=== PATIENT | female | born 1990 | race Caucasian/White ===

== ENCOUNTER → 2022-01-02 13:13 | Outpatient (BNVA) | payer MEDICAID, SELFPAY | PROVIDERS: Family Provider Internal Medicine; PCP Nurse Practitioner Family; Visit Provider Nurse Practitioner Family | DX: R06.09 Other forms of dyspnea (principal); U09.9 Post COVID-19 condition, unspecified; R06.02 Shortness of breath; R07.9 Chest pain, unspecified; R53.1 Weakness; R53.83 Other fatigue; K31.84 Gastroparesis; R42 Dizziness and giddiness; R41.3 Other amnesia; R41.840 Attention and concentration deficit; Z74.09 Other reduced mobility; R00.2 Palpitations; R29.90 Unspecified symptoms and signs involving the nervous system; F43.10 Post-traumatic stress disorder, unspecified; F90.9 Attention-deficit hyperactivity disorder, unspecified type; Z76.89 Persons encountering health services in other specified circumstances; G89.29 Other chronic pain | CPT/HCPCS: 84443; 85651; 86038; 86140; 86200; 86431; 86705; 86706; 86709; 86803; 87340 ==

== ENCOUNTER 2022-02-04 08:58 | Emergency (ER) | payer MEDICARE, MEDICAID, SELFPAY ==
[2022-02-04 09:28] LABS: Basophils # 0.1 10^3/uL (0.0-0.1); Basophils % 0.9 %; Eosinophils # 0.2 10^3/uL (0.0-0.8); Eosinophils % 3.2 %; Hematocrit 38.3 % (37.0-47.0); Hemoglobin 12.5 g/dL (11.5-15.3); Lymphocytes # 1.6 10^3/uL (0.8-4.8); Lymphocytes % 28.5 %; Mean Corpuscular HGB Conc 32.6 g/dL (30.0-36.0); Mean Corpuscular Hemoglobin 29.8 pg (28.0-34.0); Mean Corpuscular Volume 91.4 fl (81-99); Mean Platelet Volume 8.6 fL (7.4-10.4); Monocytes # 0.4 10^3/uL (0.2-0.9); Monocytes % 7.2 %; Neutrophils # 3.34 10^3/uL (1.8-7.7); Nucleated Red Blood Cells % 0 %; Platelet Count 369 10^3/cmm (130-400); Red Blood Count 4.19 10^6/uL (4.1-5.3); Red Cell Distribution Width 13.3 % (12.1-15.1); White Blood Count 5.6 10^3/uL (4.0-10.0)
[2022-02-04 09:32] VITALS: BP 122/68; PULSE 75; RESP 18; TEMP 36.7; O2SAT 98
--- NOTE | 2022-02-04 09:32 | ED_ITS ---
Documented by User: MARY Sandoval 02/05/22 06:04 HPI - Abdominal Pain General: Chief Complaint: Abdominal Pain Stated Complaint: Sent by Kristin Gregory, possible bowel obstructon Time Seen by Provider: 02/04/22 09:01 History of Present Illness: Patient is a 31-year-old female who comes to the ED with abdominal pain. Patient was sent here by the nurse practitioner Kristin Gregory at [facility] for further evaluation and possible bowel obstruction. She has history of constipation. She currently sees pain management and has been on hydrocodone for over a year. Her worsening abdominal pain and constipation started approximately 2 weeks ago. Her 2 kids had pinworms and they treated the kids and she also took oral medication for pinwor ms and since then she has had worsening constipation and abdominal pain. Her last bowel movement was 5 days ago and she described the stool as hard and golf ball sized. She has tried enemas and other mizp-gyb-ugrbvog medications including MiraLAX within the last 24 hours and has not been able to have a bowel movement. Her pain is described as a sharp pain and its in her lower abdomen bilaterally. Pain comes and goes in waves. She endorses having some nausea and vomiting as well within the last 24 hours. Denies any fevers Associated Symptoms: Reports constipation, nausea and vomiting; Denies chills, diarrhea, dysuria, fever(s), hematochezia and hematuria Review of Systems Const: Denies: fever(s), chills or fatigue Eyes: Denies: change in vision or eye discomfort ENMT: Denies: throat pain, odynophagia, nasal discharge or nasal congestion Card: Denies: chest pain, palpitations, edema, swelling of feet/ankles, dyspnea on exertion or orthopnea Resp: Denies: dyspnea, productive cough or non-productive cough GI: Reports: abdominal pain, nausea, vomiting and constipation; Denies: diarrhea or hematochezia : Denies: flank pain, dysuria or hematuria Musc: Denies: neck pain, back pain or extremity swelling Skin/Breast: Denies: rash or new lesions Neuro: Denies: headache(s), numbness in extremities or weakness in extremities [facility] ED PFSH: Medical History ADHD PTSD (post-traumatic stress disorder) Social History Smoking and tobacco status: former smoker Physical Exam Const: COMMON NORMALS: patient oriented x3 and alert GENERAL APPEARANCE: cooperative HENMT: COMMON NORMALS: normocephalic HEAD & SCALP: normocephalic MOUTH: Normal oral and palatal mucosa present THROAT: posterior oropharynx normal and uvula midline Neck/C-Spine: COMMON NORMALS: supple GENERAL: Yes normal visual inspection Resp: COMMON NORMALS: normal respiratory effort, No retractions, No use of accessory muscles and clear to auscultation bilaterally AUSCULTATION: clear to auscultation bilaterally Cardio: COMMON NORMALS: regular rate, regular rhythm, S1 normal heart sound present, S2 normal heart sound present, No gallops present (Cardio), No clicks present (Cardio), No murmurs present (Cardio) and Peripheral pulses 2+ throughout RATE: regular rate RHYTHM: regular rhythm HEART SOUNDS: S1 normal heart sound present and S2 normal heart sound present PERIPHERAL PULSES: Peripheral pulses 2+ throughout GI: COMMON NORMALS: Normal to inspection, nondistended, normoactive bowel sounds present, Soft to palpation and no masses PALPATION: Yes Soft to palpation and Yes Tenderness to palpation present (GI) Details: LLQ and RLQ : COMMON NORMALS: Yes no CVA tenderness BLADDER/KIDNEY EXAM: Yes no CVA tenderness Back/Pelvis: COMMON NORMALS: no CVA tenderness Extremity: COMMON NORMALS: normal to inspection Neuro: COMMON NORMALS: patient oriented x3 SENSORIUM/ORIENTATION: Yes alert GAIT: Yes Normal gait present Skin: GENERAL SKIN EXAM: dry skin Course Vital Signs: Vital signs: Vital Signs Temperature 98.1 F 02/04/22 09:32 Pulse Rate 92 02/04/22 12:00 Respiratory Rate 18 02/04/22 09:32 Blood Pressure 113/69 02/04/22 12:00 Pulse Oximetry 98 02/04/22 12:00 Oxygen Delivery Me thod 02/04/22 12:00 MDM - Abdominal Pain Medical Decision Making Patient is a 31-year-old female comes to the ED with abdominal pain and constipation. Vitals are stable. Patient appears nontoxic in no acute distress. She has some mild generalized tenderness in the right and left lower quadrant of the abdomen. CBC, CMP and UA were unremarkable. KUB showed large amount of fecal material in the colon. CT of abdomen pelvis showed no acute findings. Patient was diagnosed with constipation and abdominal pain. She was sent home with a prescription for GaviLyte and told to follow-up with PCP within the next 3 to 5 days for reevaluation. Return to ED precautions given. Patient understood and agreed with plan. Lab Data I reviewed the patient's lab results. : 02/04/22 09:19 02/04/22 09:19 Labs/Radiology: Radiology Impressions KUB X-Ray 02/04/22 09:35 Impression: Large amount of fecal material in the colon. Abdomen/Pelvis CT 02/04/22 10:26 IMPRESSION: 1. Mild bilateral striated nephrograms. Correlate for pyelonephritis. 2. No renal obstruction. 3. The appendix is not identified. But there are no secondary findings of appendicitis. 4. Small RIGHT ovarian cyst. Laboratory Results WBC 5.6 10^3/uL (4.0-10.0) 02/04/22 09:19 RBC 4.19 10^6/uL (4.1-5.3) 02/04/22 09:19 Hgb 12.5 g/dL (11.5-15.3) 02/04/22 09:19 Hct 38.3 % (37.0-47.0) 02/04/22 09:19 MCV 91.4 fl (81-99) 02/04/22 09:19 MCH 29.8 pg (28.0-34.0) 02/04/22 09:19 MCHC 32.6 g/dL (30.0-36.0) 02/04/22 09:19 RDW 13.3 % (12.1-15.1) 02/04/22 09:19 Plt Count 369 10^3/cmm (130-400) 02/04/22 09:19 MPV 8.6 fL (7.4-10.4) 02/04/22 09:19 Neut % (Auto) 60.0 % 02/04/22 09:19 Lymph % (Auto) 28.5 % 02/04/22 09:19 [place] % (Auto) 7.2 % 02/04/22 09:19 Eos % (Auto) 3.2 % 02/04/22 09:19 Baso % (Auto) 0.9 % 02/04/22 09:19 Neut # (Auto) 3.34 10^3/uL (1.8-7.7) 02/04/22 09:19 Lymph # (Auto) 1.6 10^3/uL (0.8-4.8) 02/04/22 09:19 [place] # (Auto) 0.4 10^3/uL (0.2-0.9) 02/04/22 09:19 Eos # (Auto) 0.2 10^3/uL (0.0-0.8) 02/04/22 09:19 Baso # (Auto) 0.1 10^3/uL (0.0-0.1) 02/04/22 09:19 Nucleated RBC % (auto) 0 % 02/04/22 09:19 Nucleated RBCs # 0.0 /100WBC 02/04/22 09:19 Sodium 139 mmol/L (136-145) 02/04/22 09:19 Potassium 4.4 mmol/L (3.5-5.1) 02/04/22 09:19 Chloride 104 mmol/L (98-107) 02/04/22 09:19 Carbon Dioxide 24 mmol/L (22-29) 02/04/22 09:19 Anion Gap 15.4 (5-19) 02/04/22 09:19 BUN 8 mg/dL (6-20) 02/04/22 09:19 Creatinine 0.5 mg/dL (0.5-0.9) 02/04/22 09:19 GFR Calculation 142.1 mL/min (90-130) H 02/04/22 09:19 Glucose 94 mg/dL (65-115) 02/04/22 09:19 Calculated Osmolality 286 mOsm/kg (285-295) 02/04/22 09:19 Calcium 8.9 mg/dL (8.5-10.5) 02/04/22 09:19 Total Bilirubin 0.3 mg/dL (0.15-1.2) 02/04/22 09:19 AST 17 U/L (0-32) 02/04/22 09:19 ALT 13 U/L (0-33) 02/04/22 09:19 Alkaline Phosphatase 55 U/L (35-105) 02/04/22 09:19 Total Protein 7.1 g/dL (6.6-8.7) 02/04/22 09:19 Albumin 4.5 g/dL (3.5-5.2) 02/04/22 09:19 Globulin 2.6 g/dL (1.3-4.6) 02/04/22 09:19 Lipase 25 U/L (13-60) 02/04/22 09:19 HCG, Qual Negative (Negative) 02/04/22 09:19 Urine Color Yellow (Yellow) 02/04/22 09:30 Urine Appearance Clear (CLEAR) 02/04/22 09:30 Urine pH 6 (5-7) 02/04/22 09:30 Ur Specific [place] 1.015 (1.005-1.030) 02/04/22 09:30 Urine Protein Neg (Negative) 02/04/22 09:30 Urine Glucose (UA) Norm (Normal) 02/04/22 09:30 Urine Ketones Negative (Negative) 02/04/22 09:30 Urine Blood Neg (Negative) 02/04/22 09:30 Urine Nitrate Negative (Negative) 02/04/22 09:30 Urine Bilirubin Neg (Negative) 02/04/22 09:30 Urine Urobilinogen Norm mg/dL (Negative) 02/04/22 09:30 Ur Leukocyte Esterase Negative (Negative) 02/04/22 09:30 Discharge Plan Discharge Patient Disposition: Home Clinical Impression: Constipation Qualifiers: Constipation type: unspecified constipation type Qualified Code(s): K59.00 - Constipation, unspecified Condition: Stable Prescriptions: New GaviLyte-G 236-22.74-6.74 -5.86 gram recon soln 240 ml PO Q10M Qty: 4000 0RF Rx Instructions: until fecal effluent is clear No Action albuterol sulfate [ProAir HFA] 90 mcg/actuation HFA aerosol inhaler 2 puff inhalation 6XD PRN (Reason: shortness of breath or wheezing) Qty: 8.5 6RF budesonide-formoterol [Symbicort] 160-4.5 mcg/actuation HFA aerosol inhaler 2 puff inhalation Q12H Qty: 10.2 6RF scopolamine base 1 mg over 3 days patch 3 day 1 patch transdermal Q3D PRN (Reason: nausea and vomiting) Qty: 10 6RF methylphenidate HCl 10 mg tablet 10 mg PO TID@07,12,16 hydrocodone-acetaminophen 10-325 mg tablet 1 tab PO DAILY PRN (Reason: Pain) Rx Instructions: rx filled 01/14/22 30d/s eszopiclone 1 mg tablet 1 mg PO BEDTIME oxycodone 10 mg tablet 10 mg PO Q8H PRN (Reason: Pain) Rx Instructions: rx filled 01/14/22 30d/s iron 325 mg (65 mg iron) Tablet 325 mg PO DAILY vitamin B complex Tablet 1 tab PO DAILY [place] Orotate 5 mg PO BEDTIME Discharge Orders: Discharge ED (Routine); Ordered 02/04/22 Ordered By: Antonio Monroe Referrals: Ninoska Gregory, HOME STAGING SPECIALIST [Primary Care Provider] - Discharge Diet: Regular Discharge Activity: Increase activity as tolerated Patient Instructions: Constipation (DC) Activity Restrictions/Additional Instructions: Follow-up with medical provider as directed in the next 3 to 5 days for reevaluation. Take medication as prescribed to help with bowel movements. Make sure you are drinking plenty of fluids and staying hydrated. Return to the ER or your medical provider if condition worsens. Please read and understand discharge instructions. Thank you for choosing [facility] for your healthcare needs today. Please realize this is an emergency room and that we are providing you with a medical screening exam and this may not be complete and all inclusive of all the testing and or work up that you may need to determine your ailment or severity of your illness. It is very important that you follow up as instructed or that you return to the Emergency Department should you have concerns or if your co ndition changes or worsens in any way. Coding Level of Care Code ED Bacon Skinner for Chg Fwd Exam Comprehensive Documented by User: Dario Meyers DO 02/06/22 15:21 HPI - Abdominal Pain General: Chief Complaint: Abdominal Pain Stated Complaint: Sent by Kristin Gregory, possible bowel obstructon Time Seen by Provider: 02/04/22 09:01 [facility] ED PFS: Medical History ADHD PTSD (post-traumatic stress disorder) Social History Smoking and tobacco status: former smoker Course Vital Signs: Vital signs: Vital Signs Temperature 98.1 F 02/04/22 09:32 Pulse Rate 92 02/04/22 12:00 Respiratory Rate 18 02/04/22 09:32 Blood Pressure 113/69 02/04/22 12:00 Pulse Oximetry 98 02/04/22 12:00 Oxygen Delivery Me thod 02/04/22 12:00 MDM - Abdominal Pain Medical Decision Making Patient is a 31-year-old female comes to the ED with abdominal pain and constipation. Vitals are stable. Patient appears nontoxic in no acute distress. She has some mild generalized tenderness in the right and left lower quadrant of the abdomen. CBC, CMP and UA were unremarkable. KUB showed large amount of fecal material in the colon. CT of abdomen pelvis showed no acute findings. Patient was diagnosed with constipation and abdominal pain. She was sent home with a prescription for GaviLyte and told to follow-up with PCP within the next 3 to 5 days for reevaluation. Return to ED precautions given. Patient understood and agreed with plan. Chart reviewed and patient discussed with midlevel. Agree with assessment and plan. Lab Data : 02/04/22 09:19 02/04/22 09:19 Labs/Radiology: Radiology Impressions KUB X-Ray 02/04/22 09:35 Impression: Large amount of fecal material in the colon. Abdomen/Pelvis CT 02/04/22 10:26 IMPRESSION: 1. Mild bilateral striated nephrograms. Correlate for pyelonephritis. 2. No renal obstruction. 3. The appendix is not identified. But there are no secondary findings of appendicitis. 4. Small RIGHT ovarian cyst. Laboratory Results WBC 5.6 10^3/uL (4.0-10.0) 02/04/22 09:19 RBC 4.19 10^6/uL (4.1-5.3) 02/04/22 09:19 Hgb 12.5 g/dL (11.5-15.3) 02/04/22 09:19 Hct 38.3 % (37.0-47.0) 02/04/22 09:19 MCV 91.4 fl (81-99) 02/04/22 09:19 MCH 29.8 pg (28.0-34.0) 02/04/22 09:19 MCHC 32.6 g/dL (30.0-36.0) 02/04/22 09:19 RDW 13.3 % (12.1-15.1) 02/04/22 09:19 Plt Count 369 10^3/cmm (130-400) 02/04/22 09:19 MPV 8.6 fL (7.4-10.4) 02/04/22 09:19 Neut % (Auto) 60.0 % 02/04/22 09:19 Lymph % (Auto) 28.5 % 02/04/22 09:19 [place] % (Auto) 7.2 % 02/04/22 09:19 Eos % (Auto) 3.2 % 02/04/22 09:19 Baso % (Auto) 0.9 % 02/04/22 09:19 Neut # (Auto) 3.34 10^3/uL (1.8-7.7) 02/04/22 09:19 Lymph # (Auto) 1.6 10^3/uL (0.8-4.8) 02/04/22 09:19 [place] # (Auto) 0.4 10^3/uL (0.2-0.9) 02/04/22 09:19 Eos # (Auto) 0.2 10^3/uL (0.0-0.8) 02/04/22 09:19 Baso # (Auto) 0.1 10^3/uL (0.0-0.1) 02/04/22 09:19 Nucleated RBC % (auto) 0 % 02/04/22 09:19 Nucleated RBCs # 0.0 /100WBC 02/04/22 09:19 Sodium 139 mmol/L (136-145) 02/04/22 09:19 Potassium 4.4 mmol/L (3.5-5.1) 02/04/22 09:19 Chloride 104 mmol/L (98-107) 02/04/22 09:19 Carbon Dioxide 24 mmol/L (22-29) 02/04/22 09:19 Anion Gap 15.4 (5-19) 02/04/22 09:19 BUN 8 mg/dL (6-20) 02/04/22 09:19 Creatinine 0.5 mg/dL (0.5-0.9) 02/04/22 09:19 GFR Calculation 142.1 mL/min (90-130) H 02/04/22 09:19 Glucose 94 mg/dL (65-115) 02/04/22 09:19 Calculated Osmolality 286 mOsm/kg (285-295) 02/04/22:19 Calcium 8.9 mg/dL (8.5-10.5) 02/04/22 09:19 Total Bilirubin 0.3 mg/dL (0.15-1.2) 02/04/22: AST 17 U/L (0-32) 02/04/22: ALT 13 U/L (0-33) 02/04/22 09:19 Alkaline Phosphatase 55 U/L (35-105) 02/04/22 09:19 Total Protein 7.1 g/dL (6.6-8.7) 02/04/22 09:19 Albumin 4.5 g/dL (3.5-5.2) 02/04/22 09:19 Globulin 2.6 g/dL (1.3-4.6) 02/04/22: Lipase 25 U/L (13-60) 02/04/22 09: HCG, Qual Negative (Negative) 02/04/22 09:19 Urine Color Yellow (Yellow) 02/04/22 09:30 Urine Appearance Clear (CLEAR) 02/04/22: Urine pH 6 (5-7) 02/04/22 09:30 Ur Specific [place] 1.015 (1.005-1.030) 02/04/22 09:30 Urine Protein Neg (Negative) 02/04/22 09:30 Urine Glucose (UA) Norm (Normal) 02/04/22: Urine Ketones Negative (Negative) 02/04/22 09:30 Urine Blood Neg (Negative) 02/04/22 09:30 Urine Nitrate Negative (Negative) 02/04/22 09:30 Urine Bilirubin Neg (Negative) 02/04/22: Urine Urobilinogen Norm mg/dL (Negative) 02/04/22 09:30 Ur Leukocyte Esterase Negative (Negative) 02/04/22 09:30 Discharge Plan Discharge Patient Disposition: Home Clinical Impression: Constipation Qualifiers: Constipation type: unspecified constipation type Qualified Code(s): K59.00 - Constipation, unspecified Condition: Stable Prescriptions: New GaviLyte-G 236-22.74-6.74 -5.86 gram recon soln 240 ml PO Q10M Qty: 4000 0RF Rx Instructions: until fecal effluent is clear No Action albuterol sulfate [ProAir HFA] 90 mcg/actuation HFA aerosol inhaler 2 puff inhalation 6XD PRN (Reason: shortness of breath or wheezing) Qty: 8.5 6RF budesonide-formoterol [Symbicort] 160-4.5 mcg/actuation HFA aerosol inhaler 2 puff inhalation Q12H Qty: 10.2 6RF scopolamine base 1 mg over 3 days patch 3 day 1 patch transdermal Q3D PRN (Reason: nausea and vomiting) Qty: 10 6RF methylphenidate HCl 10 mg tablet 10 mg PO TID@07,12,16 hydrocodone-acetaminophen 10-325 mg tablet 1 tab PO DAILY PRN (Reason: Pain) Rx Instructions: rx filled 01/14/22 30d/s eszopiclone 1 mg tablet 1 mg PO BEDTIME oxycodone 10 mg tablet 10 mg PO Q8H PRN (Reason: Pain) Rx Instructions: rx filled 01/14/22 30d/s iron 325 mg (65 mg iron) Tablet 325 mg PO DAILY vitamin B complex Tablet 1 tab PO DAILY [place] Orotate 5 mg PO BEDTIME Discharge Orders: Discharge ED (Routine); Ordered 02/04/22 Ordered By: Antonio Monroe Referrals: Ninoska Gregory NP [Primary Care Provider] - Discharge Diet: Regular Discharge Activity: Increase activity as tolerated Patient Instructions: Constipation (DC) Activity Restrictions/Additional Instructions: Follow-up with medical provider as directed in the next 3 to 5 days for reevaluation. Take medication as prescribed to help with bowel movements. Make sure you are drinking plenty of fluids and staying hydrated. Return to the ER or your medical provider if condition worsens. Please read and understand discharge instructions. Thank you for choosing [facility] for your healthcare needs today. Please realize this is an emergency room and that we are providing you with a medical screening exam and this may not be complete and all inclusive of all the testing and or work up that you may need to determine your ailment or severity of your illness. It is very important that you follow up as instructed or that you return to the Emergency Department should you have concerns or if your condition changes or worsens in any way. Coding Level of Care Code ED Bacon Skinner for Mya Fwd Exam Comprehensive
--- NOTE | 2022-02-04 09:35 | XR_ITS ---
WS: [id number] KUB, AP view, 02/04/2022 Clinical Data: Abdominal pain and constipation Comparison: None. Findings: No abnormal intraabdominal masses or calcifications are seen. There is no dilatated small bowel or ev idence of obstruction. There is a large amount of fecal material in the colon. The bladder is full. XR/XR KUB portable [id number] Impression: Large amount of fecal material in the colon.
[2022-02-04 09:38] LABS: Add Urine Microscopic? NO; Charge for UA Resulting for Rev
[2022-02-04 09:48] LABS: Bilirubin Urine Neg (Negative); Blood Urine Neg (Negative); Glucose Urine UA Norm (Normal); Ketones Urine Negative (Negative); Leukocyte Esterase Urine Negative (Negative); Nitrate Urine Negative (Negative); Protein Urine Neg (Negative); Specific Gravity, Urine 1.015 (1.005-1.030); Urine Appearance Clear (CLEAR); Urine Color Yellow (Yellow); Urobilinogen Urine Norm (Negative); pH Urine 6 (5-7)
[2022-02-04 09:52] LABS: Alanine Aminotransferase 13 U/L (0-33); Albumin Level 4.5 g/dL (3.5-5.2); Alkaline Phosphatase 55 U/L (35-105); Anion Gap 15.4 (5-19); Aspartate Amino Transferase 17 U/L (0-32); Blood Urea Nitrogen 8 mg/dL (6-20); Calcium 8.9 mg/dL (8.5-10.5); Carbon Dioxide 24 mmol/L (22-29); Chloride 104 mmol/L (98-107); Globulin 2.6 g/dL (1.3-4.6); Glomerular Filtration Rate 142.1 mL/min (90-130); Glucose 94 mg/dL (65-115); Lipase 25 U/L (13-60); Osmolality Calculated 286 mOsm/kg (285-295); Potassium 4.4 mmol/L (3.5-5.1); Sodium 139 mmol/L (136-145); Total Bilirubin 0.3 mg/dL (0.15-1.2); Total Protein 7.1 g/dL (6.6-8.7)
[2022-02-04 09:53] LABS: HCG, Serum Qual Negative (Negative)
[2022-02-04 10:02] VITALS: BP 138/92; PULSE 83; O2SAT 100
--- NOTE | 2022-02-04 10:26 | CT_ITS ---
WS: [id number] CT ABDOMEN AND PELVIS WITH CONTRAST HISTORY: lower abdominal pain and constipation TECHNIQUE: Imaging performed of the abdomen and pelvis with IV contrast. Single phase imaging of the abdomen. Coronal and sagittal reformats are submitted. All CT scans at [facility] use at [address] one of these dose optimization techniques: automated exposure control; mA and/or kV adjustment per patient size (includes targeted exams where dose is matched to clinical indication); or iterative re construction. IV CONTRAST: Omnipaque 350; 80 mL IV. Oral contrast: No DLP: 288.28 mGy.cm COMPARISON: None available. Lower thorax: Lung bases are clear. Heart is normal size. Small hiatal hernia. Liver/biliary system: Normal size with no intrahepatic dilatation. Gallbladder: Normal. No gallstones or wall thickening. No pericholecystic fluid. Pancreas: Normal size pancreas and pancreatic duct. No adjacent inflammation. Spleen: Normal size spleen. No mass or infarct. Adrenal glands: Normal. Right kidney: Very mild striated appearance of the renal cortex with no obstruction. Left kidney: Mildly striated appearance of the renal parenchyma. No obstruction. Aorta: Normal. Lymphadenopathy: None. Free fluid: None. GI tract: Unremarkable. Cannot identify the appendix but no secondary findings of appendicitis. Abdominal wall: Unremarkable abdominal wall. No hernia. Pelvis: No free fluid or adenopathy within the pelvis. Normal size anteverted uterus. Small amount of fluid within the endometrium. Small RIGHT ovarian cyst measures 3.1 x 2.9 cm. Peripherally enhancing corpus luteum in the LEFT ovary. Bones: Unremarkable. CT/CT abdomen pelvis w con* [id number] IMPRESSION: 1. Mild bilateral striated nephrograms. Correlate for pyelonephritis. 2. No renal obstruction. 3. The appendix is not identified. But there are no secondary findings of appe ndicitis. 4. Small RIGHT ovarian cyst.
[2022-02-04 11:00] VITALS: BP 127/89; PULSE 92; O2SAT 99
[2022-02-04] MEDS: iohexol 350 mg/mL 500 mL Btl (per mL) IV (11:21)
[2022-02-04 12:00] VITALS: BP 113/69; PULSE 92; O2SAT 98
== END 2022-02-04 13:15 | disposition home or self-care (01) ==
PROVIDERS: Emergency Provider Physician Assistant; PCP Nurse Practitioner Family
DX: K59.00 Constipation, unspecified (principal); Z79.891 Long term (current) use of opiate analgesic
CPT/HCPCS: 36415; 74018; 74177; 80053; 81003; 83690; 84703; 85025; 99285; Q9967

== ENCOUNTER → 2022-02-17 14:11 | Outpatient (BNVA) | payer MEDICARE, MEDICAID, SELFPAY | PROVIDERS: PCP Nurse Practitioner Family; Visit Provider Surgery | DX: K59.03 Drug induced constipation (principal); T40.2X5A Adverse effect of other opioids, initial encounter; R10.13 Epigastric pain; X58.XXXA Exposure to other specified factors, initial encounter | CPT/HCPCS: 99203 ==

== ENCOUNTER 2022-02-23 08:54 | Day surgery (SDC) | payer MEDICARE, MEDICAID, SELFPAY ==
[2022-02-18 09:24] VITALS: BMI 21.9
--- NOTE | 2022-02-23 09:30 | W.PM.OPSUD ---
Surgery/Procedure H&P Update DATE OF PROCEDURE: February 23, 2022 DATE H&P PERFORMED: 02/17/22 PLANNED PROCEDURE: Operation Date: 02/23/22 10:00 Proposed Procedures p [id number] EGD [id number] Colonoscopy R10.13,K59.03(Not Applicable) - DO víctor Jones Colonoscopy(Not Applicable) - Yifan Lacey DO
--- NOTE | 2022-02-23 09:51 | ANES.PREANE2 ---
Pre-Anesthetic Assessment Height/Weight: Height 1.57 m Weight 54.431 kg Preop Diagnosis: abd pain Operation Date: 02/23/22 10:00 Proposed Procedures p [id number] EGD [id number] Colonoscopy R10.13,K59.03(Not Applicable) - DO víctor Jones Colonoscopy(Not Applicable) - Yifan Lacey DO Familial anesthetic complications: none Was Beta Dotty taken within 24 hours: N/A Was Clonidine taken within 24 hours: N/A Last Intake: 21:00 Social Tobacco and No alcohol vape Exam alert, oriented x 3, clear to auscultation bilaterally and regular rate & rhythm Airway Submandibular: within normal limits Cervical ROM: within normal limits Mallampati: Class I Dentition: full (poor multiple missing) Comments: Comments: TMJ Pulmonary Asthma (seasnonal) CV/HEM Palpitations (post covid. Neg cardiac workup) None reported Hepatic None reported GI Gastroesophageal Reflux Disease Metabolic None reported Musc/skel Lower Back Pain and Osteoarthritis/DJD Neuropsych Anxiety and Depression PTSD Anesthetic Plan ASA status: 2 Anesthesia: MAC Risk of > 500 ml blood loss (7ml/kg in children): No Medications/Allergies Home Medications Medication Instructions Recorded Confirmed Last Taken Type albuterol sulfate 90 mcg/actuation 2 puff inhalation 6XD PRN 01/02/22 02/18/22 Unknown Rx aerosol inhaler (ProAir HFA) shortness of breath or wheezing #8.5 grams budesonide-formoterol HFA 160 2 puff inhalation Q12H #10.2 grams 01/02/22 02/18/22 Unknown Rx mcg-4.5 mcg/actuation aerosol inhaler (Symbicort) eszopiclone 1 mg tablet (Lunesta) 1 mg PO BEDTIME 02/04/22 02/18/22 02/17/22 History ferrous sulfate 325 mg (65 mg 325 mg PO DAILY 02/04/22 02/18/22 02/18/22 History iron) tablet (iron) hydrocodone 10 mg-acetaminophen 1 tab PO DAILY PRN Pain 02/04/22 02/18/22 Unknown History 325 mg tablet methylphenidate HCl 10 mg tablet 10 mg PO TID@07,12,16 02/04/22 02/18/22 02/18/22 History oxycodone 10 mg tablet 10 mg PO Q8H PRN Pain 02/04/22 02/18/22 Unknown History vitamin B complex 1 tab PO DAILY 02/04/22 02/18/22 02/18/22 History methylnaltrexone 12 mg/0.6 mL 12 mg (0.6 mL) SUBCUT DAILY #4.2 mL 02/17/22 02/18/22 Unknown Rx subcutaneous syringe (Relistor) pantoprazole 40 mg tablet,delayed 40 mg PO BID 6 weeks #84 tabs 02/17/22 02/18/22 Unknown Rx release (Protonix) Allergies Allergy/AdvReac Type Severity Reaction Status Date / Time No Known Allergies Allergy Verified 02/18/22 09:17 [facility] Anesthesia Medical History (Updated 02/17/22 @ 15:33 by Yifan Lacey DO) ADHD COVID-19 PTSD (post-traumatic stress disorder) Therapeutic opioid induced constipation Surgical History History of bunionectomy Hx of tonsillectomy Social History Smoking and tobacco status: former smoker Female Reproductive History Date of last menstrual period: 02/15/22 Data Anesthesia Cardiac Studies: No Data to Display
[2022-02-23 09:53] VITALS: BP 109/55; PULSE 70; RESP 18; TEMP 36.7; O2SAT 99
[2022-02-23] MEDS: sodium chloride 0.9% 1,000 ML 30 ML IV (10:00)
[2022-02-23 10:16] LABS: OR HCG Qualitative Urine Negative (Negative)
[2022-02-23 10:29] VITALS: BP 96/57; PULSE 69; RESP 16; TEMP 36.6; O2SAT 100
[2022-02-23 10:46] VITALS: BP 108/76; PULSE 70; RESP 18; O2SAT 100
--- NOTE | 2022-02-23 13:50 | ANE.PACU2 ---
Inpatient post-anesthesia follow up: Airway intact: Yes Vital signs: Temperature 97.8 F Pulse Rate 70 Respiratory Rate 18 Blood Pressure 108/76 Pulse Oximetry 100 Oxygen Delivery Me thod Room Air Oxygen Flow Rate 4 Fraction of Inspir ed Oxygen Hydration adequate: Yes Nausea and vomiting: No Pain level: 1 Mental status: Baseline
== END 2022-02-23 11:09 | disposition home or self-care (01) ==
PROVIDERS: Anesthesiology; PCP Nurse Practitioner Family; Visit Provider Surgery
PROC: 0DJ08ZZ Inspection of Upper Intestinal Tract, Via Natural or Artificial Opening Endoscopic (ICD-10-PCS; CPT 43235; principal; 2022-02-23 10:00)
PROC: 0DJD8ZZ Inspection of Lower Intestinal Tract, Via Natural or Artificial Opening Endoscopic (ICD-10-PCS; CPT 45378; 2022-02-23 10:00)
DX: K59.03 Drug induced constipation (principal); R10.13 Epigastric pain; T40.2X5A Adverse effect of other opioids, initial encounter; K64.8 Other hemorrhoids; K21.9 Gastro-esophageal reflux disease without esophagitis; F90.9 Attention-deficit hyperactivity disorder, unspecified type; Z86.16 Personal history of COVID-19; Z87.891 Personal history of nicotine dependence
CPT/HCPCS: 43239; 45378; 81025; 84703; J2704; J3010; J7030

== ENCOUNTER → 2022-03-17 16:01 | Outpatient (BNVA) | payer MEDICARE, MEDICAID, SELFPAY | PROVIDERS: PCP Nurse Practitioner Family; Visit Provider Surgery | DX: Z09 Encounter for follow-up examination after completed treatment for conditions other than malignant neoplasm (principal); K64.8 Other hemorrhoids | CPT/HCPCS: 99212 ==

== ENCOUNTER → 2022-04-08 10:32 | Outpatient (BNVA) | payer MEDICARE, MEDICAID, SELFPAY | PROVIDERS: PCP Nurse Practitioner Family; Visit Provider Internal Medicine Rheumatology | DX: M19.90 Unspecified osteoarthritis, unspecified site (principal); Z11.59 Encounter for screening for other viral diseases; R76.8 Other specified abnormal immunological findings in serum; Z79.899 Other long term (current) drug therapy; M25.50 Pain in unspecified joint; Z11.1 Encounter for screening for respiratory tuberculosis; Z71.85 Encounter for immunization safety counseling; K02.9 Dental caries, unspecified; K21.9 Gastro-esophageal reflux disease without esophagitis | CPT/HCPCS: 36415; 72040; 72100; 73130; 73630; 85651; 86140; 86160; 86162; 86235; 86255; 86376; 86480; 99204 ==

== ENCOUNTER → 2022-06-25 10:06 | Outpatient (BNVA) | payer MEDICARE, MEDICAID, SELFPAY | PROVIDERS: PCP Nurse Practitioner Family; Visit Provider Internal Medicine Rheumatology | DX: M19.90 Unspecified osteoarthritis, unspecified site (principal); Z79.899 Other long term (current) drug therapy; R76.8 Other specified abnormal immunological findings in serum; Z71.85 Encounter for immunization safety counseling; K02.9 Dental caries, unspecified | CPT/HCPCS: 99214 ==

== ENCOUNTER 2022-07-16 20:10 | Emergency (ER) | payer MEDICARE, MEDICAID, SELFPAY ==
[2022-07-16 20:22] VITALS: BP 145/87; PULSE 156; RESP 20; TEMP 39.5; O2SAT 100
--- NOTE | 2022-07-16 20:42 | ED_ITS ---
HPI - Recheck/Abnormal Lab/Rx General: Chief Complaint: Recheck/Abnormal Lab/Rx Stated Complaint: high WBC, UTI sent by Time Seen by Provider: 07/16/22 20:30 Source: patient Mode of arrival: ambulatory Limitations: no limitations History of Present Illness: 32-year-old female states that she has been having dysuria over the last week. States she fears she had a UTI but she never got checked out states that today she started having worsening dysuria suprapubic and some flank pain she had 2 episodes of vomiting today with high fever she was seen by her PCP did have an elevated white count nitrite positive urine was sent here. She is febrile here and tachycardic blood pressure is normal she states her pain is subsided and is currently a 2 out of 10 she has not had any recent vomiting she denies any worsening proving factors denies any vaginal discharge. Review of Systems Const: Reports: fever(s), chills and body aches; Denies: change in appetite ENMT: Denies: throat pain or dental pain Card: Denies: chest pain Resp: Denies: dyspnea GI: Reports: abdominal pain, nausea and vomiting; Denies: diarrhea : Reports: flank pain and dysuria Musc: Denies: neck pain or back pain Skin/Breast: Denies: rash Neuro: Denies: headache(s) Psych: Denies: depression PFSH ED PFSH: Medical History ADHD COVID-19 Dental caries High risk medication use Immunization counseling Inflammatory arthritis Internal hemorrhoids Positive SALOME (antinuclear antibody) PTSD (post-traumatic stress disorder) Therapeutic opioid induced constipation Surgical History History of bunionectomy Hx of tonsillectomy Social History Smoking and tobacco status: former smoker Physical Exam Const: COMMON NORMALS: patient oriented x3 HENMT: COMMON NORMALS: normocephalic and atraumatic HEAD & SCALP: normocephalic and atraumatic Eye: COMMON NORMALS: conjunctivae normal CONJUNCTIVA: Yes conjunctivae normal Neck/C-Spine: COMMON NORMALS: full ROM and supple Chest: COMMONS NORMALS: normal inspection of the chest and normal palpation of entire chest wall Resp: COMMON NORMALS: normal respiratory effort, No retractions, No use of accessory muscles and clear to auscultation bilaterally AUSCULTATION: clear to auscultation bilaterally Cardio: COMMON NORMALS: regular rhythm and No murmurs present (Cardio) RATE: tachycardic RHYTHM: regular rhythm GI: COMMON NORMALS: Normal to inspection, nondistended, normoactive bowel sounds present, Soft to palpation, non-tender and no masses PALPATION: Yes Soft to palpation Extremity: COMMON NORMALS: normal to inspection and full ROM Neuro: COMMON NORMALS: patient oriented x3, moves all extremities and no focal motor deficits Psych: COMMON NORMALS: mental status grossly normal, Normal thought process present and cooperative THOUGHT PROCESS: Normal thought process present Skin: COMMON NORMALS: no rashes or lesions noted and no wounds GENERAL SKIN EXAM: no rashes or lesions noted Course Vital Signs: Vital signs: Vital Signs Temperature 100.9 F H 07/16/22 22:06 Pulse Rate 109 H 07/17/22 00:00 Respiratory Rate 16 07/17/22 00:00 Blood Pressure 110/58 07/17/22 00:00 Pulse Oximetry 99 07/17/22 00:00 Oxygen Delivery Me thod Room Air 07/16/22 20:22 MDM - Recheck/Abnormal Lab/Rx Medical Decision Making Patient presents here with pyelonephritis her heart rate was in the 140s when she got here she feels much improved after fluids her heart rate now is 105 her lactate is normal white count is 15 did give the option of admission versus discharge she states she feels much improved after IV fluids IV robotics will trial pain meds Zofran along with antibiotics at home I did inform her she starts having vomiting worse pain or worsening fever to return immediately she understands agrees to plan. Medical Records I reviewed the patient's medical records. Lab Data 07/16/22 20:37 07/16/22 20:37 Radiology Impressions Abdomen/Pelvis CT 07/16/22 22:04 IMPRESSION: 1. Findings consistent with left pyelonephritis. 2. Fluid distended gallbladder with no visible wall thickening. Laboratory Results WBC 15.8 10^3/uL (4.0-10.0) H 07/16/22 20:37 RBC 4.17 10^6/uL (4.1-5.3) 07/16/22 20: Hgb 11.5 g/dL (11.5-15.3) 07/16/22 20: Hct 37.1 % (37.0-47.0) 07/16/22 20: MCV 89.0 fl (81-99) 07/16/22: MCH 27.6 pg (28.0-34.0) L 07/16/22: MCHC 31.0 g/dL (30.0-36.0) 07/16/22 20: RDW 14.4 % (12.1-15.1) 07/16/22 20: Plt Count 250 10^3/cmm (130-400) 07/16/22: MPV 9.0 fL (7.4-10.4) 07/16/22 20: Neut % (Auto) 82.6 % 07/16/22 20: Lymph % (Auto) 7.8 % 07/16/22 20: [place] % (Auto) 8.6 % 07/16/22 20: Eos % (Auto) 0.0 % 07/16/22 20: Baso % (Auto) 0.3 % 07/16/22 20: Neut # (Auto) 13.01 10^3/uL (1.8-7.7) H 07/16/22 20:37 Lymph # (Auto) 1.2 10^3/uL (0.8-4.8) 07/16/22 20: [place] # (Auto) 1.4 10^3/uL (0.2-0.9) H 07/16/22 20:37 Eos # (Auto) 0.0 10^3/uL (0.0-0.8) 07/16/22 20: Baso # (Auto) 0.1 10^3/uL (0.0-0.1) 07/16/22 20: Nucleated RBC % (auto) 0 % 07/16/22 20: Nucleated RBCs # 0.0 /100WBC 07/16/22 20: Sodium 131 mmol/L (136-145) L 07/16/22 20: Potassium 3.7 mmol/L (3.5-5.1) 07/16/22 20:37 Chloride 97 mmol/L (98-107) L 07/16/22 20:37 Carbon Dioxide 22 mmol/L (22-29) 07/16/22 20:37 Anion Gap 15.7 (5-19) 07/16/22 20:37 BUN 9 mg/dL (6-20) 07/16/22 20:37 Creatinine 0.9 mg/dL (0.5-0.9) 07/16/22 20:37 GFR Calculation 71.7 mL/min (90-130) L 07/16/22 20:37 Glucose 117 mg/dL (65-115) H 07/16/22 20:37 Calculated Osmolality 272 mOsm/kg (285-295) L 07/16/22 20: Lactate 1.2 mmol/L (0.5-2.2) 07/16/22 20: Calcium 8.0 mg/dL (8.5-10.5) L 07/16/22 20:37 Total Bilirubin 0.4 mg/dL (0.15-1.2) 07/16/22 20:37 AST 13 U/L (0-32) 07/16/22 20:37 ALT 10 U/L (0-33) 07/16/22 20:37 Alkaline Phosphatase 65 U/L (35-105) 07/16/22 20:37 Total Protein 6.8 g/dL (6.6-8.7) 07/16/22 20: Albumin 3.6 g/dL (3.5-5.2) 07/16/22 20:37 Globulin 3.2 g/dL (1.3-4.6) 07/16/22 20: Lipase 9 U/L (13-60) L 07/16/22 20:37 HCG, Qual Negative (Negative) 07/16/22 20: Urine Color Yellow (Yellow) 07/16/22: Urine Appearance Hazy (CLEAR) A 07/16/22: Urine pH 6 (5-7) 07/16/22: Ur Specific [place] 1.015 (1.005-1.030) 07/16/22 21: Urine Protein 3+ (Negative) H 07/16/22: Urine Glucose (UA) Norm (Normal) 04/20/23 21:22 Urine Ketones Negative (Negative) 07/16/22 21:22 Urine Blood 3+ (Negative) H 07/16/22 21:22 Urine Nitrate Positive (Negative) H 07/16/22 21:22 Urine Bilirubin Neg (Negative) 07/16/22 21:22 Urine Urobilinogen 4 mg/dL (Negative) H 07/16/22 21:22 Ur Leukocyte Esterase 2+ (Negative) H 07/16/22 21:22 Urine RBC 10-15 /hpf (0-2) H 07/16/22 21:22 Urine WBC Too numerous to cnt /hpf (0-5) H 07/16/22 21:22 Ur Squamous Epith Cells 0-4 /hpf (0-5) H 07/16/22 21:22 Amorphous Sediment Not Reportable 07/16/22 21:22 Urine Bacteria 2+ /hpf (NONE) H 07/16/22 21:22 Discharge Plan Discharge Patient Disposition: Home Clinical Impression: Pyelonephritis Condition: Stable Prescriptions: New hydrocodone-acetaminophen 5-325 mg tablet 1 tab PO Q6H PRN (Reason: pain) Qty: 14 0RF Cipro 500 mg tablet 500 mg PO BID Qty: 14 0RF ondansetron 4 mg tablet,disintegrating 4 mg PO Q6H PRN (Reason: nausea and vomiting) Qty: 14 0RF No Action albuterol sulfate [ProAir HFA] 90 mcg/actuation HFA aerosol inhaler 2 puff inhalation 6XD PRN (Reason: shortness of breath or wheezing) Qty: 8.5 6RF prednisone 10 mg tablet See Rx Instructions PO .COMPLEX Qty: 90 1RF Rx Instructions: 3 tabs daily x5days, then 2 tabs daily x5days, 1 tab daily x10 days then stay on 0.5 tab daily til next appt. orally; dexlansoprazole [Dexilant] 60 mg capsule,biphase delayed releas See Rx Instructions PO DAILY Qty: 30 3RF Rx Instructions: take one cap in am 30 minutes before breakfast. orally daily; methylphenidate HCl 10 mg tablet 20 mg PO TID@07,12,16 hydrocodone-acetaminophen 10-325 mg tablet 1 tab PO DAILY PRN (Reason: Pain) Rx Instructions: rx filled 01/14/22 30d/s oxycodone 10 mg tablet 10 mg PO Q8H PRN (Reason: Pain) Rx Instructions: rx filled 01/14/22 30d/s ferrous sulfate [iron] 325 mg (65 mg iron) Tablet 325 mg PO DAILY vitamin B complex Tablet 1 tab PO DAILY Ambien 5 mg Tablet 5 mg PO BEDTIME Narcan 4 mg/actuation spray,non-aerosol 4 mg INTRANASAL ONCE PRN (Reason: overdose) Discharge Orders: Discharge ED (Routine); Ordered 07/17/22 Ordered By: Bill Vogel Referrals: Ninoska Gregory NP [Primary Care Provider] - 1-3 days Discharge Diet: Advance as tolerated Discharge Activity: Resume usual activity Patient Instructions: Kidney Infection (ED) Coding Level of Care Code ED Body Presser for Mya Henderson
[2022-07-16 20:44] VITALS: BP 141/94; PULSE 140; RESP 23; O2SAT 98
[2022-07-16] MEDS: sodium chloride 0.9% 1,000 ML 999 ML IV ×2 (20:45→22:01)
[2022-07-16] MEDS: acetaminophen 500 mg Tablet 1000 MG PO (20:45)
[2022-07-16 20:49] VITALS: RESP 16
[2022-07-16] MEDS: ondansetron 2 mg/ML SDV 2 mL 4 MG IVP (20:49)
[2022-07-16] MEDS: morphine 4 mg/mL SDV 1 mL IVP (20:49)
[2022-07-16 21:00] LABS: Basophils # 0.1 10^3/uL (0.0-0.1); Basophils % 0.3 %; Hematocrit 37.1 % (37.0-47.0); Hemoglobin 11.5 g/dL (11.5-15.3); Lymphocytes # 1.2 10^3/uL (0.8-4.8); Lymphocytes % 7.8 %; Mean Corpuscular Hemoglobin 27.6 pg (28.0-34.0); Monocytes # 1.4 10^3/uL (0.2-0.9); Monocytes % 8.6 %; Neutrophils # 13.01 10^3/uL (1.8-7.7); Neutrophils % 82.6 %; Nucleated Red Blood Cells % 0 %; Platelet Count 250 10^3/cmm (130-400); Red Blood Count 4.17 10^6/uL (4.1-5.3); Red Cell Distribution Width 14.4 % (12.1-15.1); White Blood Count 15.8 10^3/uL (4.0-10.0)
[2022-07-16 21:15] LABS: HCG, Serum Qual Negative (Negative)
[2022-07-16 21:26] LABS: Alanine Aminotransferase 10 U/L (0-33); Albumin Level 3.6 g/dL (3.5-5.2); Alkaline Phosphatase 65 U/L (35-105); Anion Gap 15.7 (5-19); Aspartate Amino Transferase 13 U/L (0-32); Blood Urea Nitrogen 9 mg/dL (6-20); Carbon Dioxide 22 mmol/L (22-29); Chloride 97 mmol/L (98-107); Globulin 3.2 g/dL (1.3-4.6); Glomerular Filtration Rate 71.7 mL/min (90-130); Glucose 117 mg/dL (65-115); Lipase 9 U/L (13-60); Osmolality Calculated 272 mOsm/kg (285-295); Potassium 3.7 mmol/L (3.5-5.1); Sodium 131 mmol/L (136-145); Total Bilirubin 0.4 mg/dL (0.15-1.2); Total Protein 6.8 g/dL (6.6-8.7)
[2022-07-16 21:28] LABS: Lactate (Lactic Acid level) 1.2 mmol/L (0.5-2.2)
[2022-07-16 21:43] VITALS: BP 133/80; PULSE 128; RESP 16; O2SAT 98
[2022-07-16 21:55] LABS: Bilirubin Urine Neg (Negative); Blood Urine 3+ (Negative); Glucose Urine UA Norm (Normal); Ketones Urine Negative (Negative); Nitrate Urine Positive (Negative); Protein Urine 3+ (Negative); Specific Gravity, Urine 1.015 (1.005-1.030); Urine Color Yellow (Yellow); Urobilinogen Urine 4 mg/dL (Negative); pH Urine 6 (5-7)
[2022-07-16 21:56] VITALS: BP 133/80; PULSE 127; RESP 16; O2SAT 98
[2022-07-16 21:56] LABS: Add Urine Microscopic? YES; Leukocyte Esterase Urine 2+ (Negative); Urine Appearance Hazy (CLEAR)
[2022-07-16 21:57] LABS: Add Urine Culture? Yes; Bacteria Urine 2+ /hpf; Squamous Epithelial Cell Urine 0-4 /hpf (0-5); WBC Urine TOO NUMEROUS TO CNT /hpf (0-5)
--- NOTE | 2022-07-16 22:04 | CTR_ITS ---
PROCEDURE INFORMATION: Exam: CT Abdomen And Pelvis With Contrast Exam date and time: 07/16/2022 11:08 PM Age: 32 years old Clinical indication: Other: Pyelonephritis TECHNIQUE: Imaging protocol: Computed tomography of the abdomen and pelvis with contrast. Radiation optimization: All CT scans at this facility use at least one of these dose optimization techniques: automated exposure control; mA and/or kV adjustment per patient size (includes targeted exams where dose is matched to clinical indication); or iterative reconstruction. Contrast material: OMNI 350; Contrast volume: 75 ml; Contrast route: INTRAVENOUS (IV); REPORTING DATA: Count of CT and Cardiac NM exams in prior 12 months: This patient has received [address] and 0 known cardiac nuclear medicine studies in the 12 months prior to the current study. COMPARISON: CT abdomen pelvis w con* [id number] 02/04/2022 11:11 AM RADIATION DOSE METRICS: Total DLP (mGy-cm): 319.13 FINDINGS: Liver: Normal. No mass. Gallbladder and bile ducts: Prominent fluid distended gallbladder. No visible wall thickening or stones. The bile ducts are normal. Pancreas: Normal. No ductal dilation. Spleen: Normal. No splenomegaly. Adrenal glands: Normal. No mass. Kidneys and ureters: Diffuse inhomogenous perfusion of the left kidney with striations. The right kidney is normal. No calculus or hydronephrosis. Stomach and bowel: Distension of the proximal and transverse colon with stool and gas. The stomach and small bowel are unremarkable. No obstruction. Appendix: The appendix is not visualized. No secondary signs of appendicitis. Intraperitoneal space: Unremarkable. No free air. No significant fluid collection. Vasculature: Unremarkable. No abdominal aortic aneurysm. Lymph nodes: Prominent retroperitoneal lymph nodes are most likely reactive. Urinary bladder: Unremarkable as visualized. Reproductive: Tampon in the vagina. The uterus and ovaries are unremarkable. Bones/joints: Unremarkable. No acute fracture. Soft tissues: Unremarkable. CT/CT abdomen pelvis w con* [id number] IMPRESSION: 1. Findings consistent with left pyelonephritis. 2. Fluid distended gallbladder with no visible wall thickening.
[2022-07-16 22:06] VITALS: TEMP 38.3
[2022-07-16] MEDS: cefTRIAXone 1,000 MG in sodium chloride 0.9% (plus) 50 ML 100 MG IV (22:12)
[2022-07-16] MEDS: ibuprofen 600 mg Tablet PO (22:13)
[2022-07-16] MEDS: iohexol 350 mg/mL 500 mL Btl (per mL) IV (23:12)
[2022-07-17] VITALS: BP 110/58; PULSE 109; RESP 16; O2SAT 99
[2022-07-17 00:54] VITALS: BP 115/63; PULSE 106; RESP 16; O2SAT 99
== END 2022-07-17 00:55 | disposition home or self-care (01) ==
PROVIDERS: Emergency Provider Emergency Medicine; PCP Nurse Practitioner Family
DX: N12 Tubulo-interstitial nephritis, not specified as acute or chronic (principal)
CPT/HCPCS: 74177; 80053; 81001; 83605; 83690; 84703; 85025; 87040; 87077; 87086; 87186; 96361; 96365; 96375; 99285; J0696; J2270; J2405; J7030; Q9967